=== PATIENT | male | born 1995 | race Two or more races ===

== ENCOUNTER 2024-04-04 14:23 | Emergency (ER) | payer OTHER, SELFPAY ==
--- NOTE | ~2024-04-04 | XR_ITS ---
EXAMINATION: XR SHOULDER, RIGHT CLINICAL INFORMATION: ? dislocation COMPARISON: None available. TECHNIQUE: AP external rotation, Grashey, scapular Y, and axillary views of the right shoulder. FINDINGS: The bones and soft tissues are normal. No fracture. Glenohumeral and acromioclavicular alignment is anatomic with normal joint space. No abnormal soft tissue calcifications. XR/XR shoulder RT min 2V IMPRESSION: Normal right shoulder. Electronically signed by: Magno Bloom MD 04/04/2024 03:19 PM [place]
[2024-04-04 14:53] VITALS: BP 124/80; PULSE 77; RESP 16; TEMP 36.7; O2SAT 99; BMI 31.7
--- NOTE | 2024-04-04 14:53 | ED_ITS ---
HPI - General Adult General Chief complaint: Extremity Injury, Upper Stated complaint: dislocated r shoulder at work Time Seen by Provider: 04/04/24 15:35 Source: patient, RN notes reviewed and old records reviewed Mode of arrival: ambulatory Limitations: no limitations History of Present Illness ED Provider: Vignesh [facility] narrative: Patient is a 28-year-old right hand dominant male presenting to ED from urgent care for concern of right shoulder dislocation, arrives in sling. Had x-ray there, presents with a disc, paperwork states concern for subluxation. Fell out of a truck at work a few hours ago, put his right arm out to break his fall. Denies head strike or loss of consciousness, is not anticoagulated. MD complaint: right shoulder pain Onset (ago): hour(s) Treatments prior to arrival: other (sling ) Related Data Allergies Allergy/AdvReac Type Severity Reaction Status Date / Time ibuprofen Allergy Unknown chest wall Verified 04/04/24 14:56 pain Review of Systems Review of Systems: As per HPI Yes all other systems are reviewed and are negative Constitutional: Constitutional: Reports as per HPI [facility] Social History Social History Do you have a plan to hurt others: No Plan Physical Exam ED Vital Signs: Vital Signs - 24 hr 04/04/24 14:53 Temperature 98.0 F Pulse Rate 77 Respiratory Rate 16 Blood Pressure 124/80 Pulse Oximetry 99 Oxygen Delivery Method Room Air BMI result Body Mass Index 31.7 Vital signs have been reviewed and appear to be correct. Blood pressure normal. Heart rate normal. Respiratory rate normal. Temperature normal. Oxygen saturation normal. Const General: cooperative, healthy appearing and no acute distress Orientation/consciousness: oriented to person, oriented to place, oriented to time and patient oriented x3 Limitations: no limitations HENMT Head: Yes normocephalic and Yes atraumatic Ears: external ears normal General nose exam: Normal external nose present Face and sinus: Yes face symmetric Mouth: oropharynx normal and moist mucous membranes Throat: Yes uvula midline Eyes Pupils: Equal, round and reactive pupils present Neck Neck: Yes normal visual inspection and Yes supple Resp Effort & Inspection: normal respiratory effort and able to speak in complete sentences Auscultation: clear to auscultation bilaterally Cardio Rate: regular rate Rhythm: regular rhythm Heart sounds: S1 normal heart sound present and S2 normal heart sound present GI Palpation (GI): Soft to palpation and nontender Auscultation: normoactive bowel sounds General: Yes no CVA tenderness Back/Spine/Pelvis Back: no CVA tenderness Skin General skin exam: elasticity normal and turgor normal Neuro General: oriented to person, oriented to place, oriented to time, patient oriented x3, moves all extremities, no focal motor deficits and CN's II-XI intact bilaterally Cranial nerves: Yes Equal, round and reactive pupils present Cognition (Neuro): normal cognition Extrem General: Yes full ROM, Yes no pedal edema and Yes no calf tenderness Right upper extremity: shoulder/upper arm Details: normal to inspection, tenderness Location: of the A-C joint and axillary nerve sensory function normal; no swelling, ROM limited (decreased ROM all directions r/t pain), no ecchymosis and no deformity and Extremity exam: right hand Details: vascular exam Details: radial pulse present and normal capillary refill and normal ROM of fingers Psych Mental Status: mental status grossly normal Affect: normal affect Thought process: Normal thought process present Course Course Course Narrative: This is a rapid medical exam performed by Manjula Medellin NP: Additional HPI, ROS, PE not included below will be deferred to primary provider. Patient is a 28-year-old right hand dominant male presenting to ED from urgent care for ? right shoulder dislocation, arrives in sling. Had x-ray there, presents with a disc. Fell out of a truck at work a few hours ago, put right arm out to break his fall. Denies head strike, LOC, is not anticoagulated. Plan: repeat imaging Medical Decision Making Medical Decision Making MDM Narrative: Patient is a 28-year-old right hand dominant male presenting to ED from urgent care for concern of right shoulder dislocation, arrives in sling. On exam patient is awake, A+Ox3, VS WNL, afebrile, normal neurological exam without focal deficits, physical exam findings as above. Given reported symptoms and physical exam findings, initial differential includes but is not limited to right shoulder strain, sprain, fracture, dislocation. X-ray notable for normal right shoulder. My interpretation is in agreement with the radiologist's interpretation. Results discussed with patient and all questions answered. Will refer to orthopedics for follow-up. Discussed with patient that he should not wear the sling longer than the next 1-2 days as this can cause his shoulder to become a frozen. Return precautions discussed. Patient verbalized understanding of and agreement with plan. Differential Diagnosis Differential Diagnoses: The differential diagnosis associated with the presentation includes As per MDM Independent Interpretation I performed an independent interpretation of an: Plain X-Ray Interpretation: Normal right shoulder on x-ray Radiology Impression Discussion of test interpretation with radiology: I have reviewed the radiologist's reading. Radiologist Impression: FINDINGS: The bones and soft tissues are normal. No fracture. Glenohumeral and acromioclavicular alignment is anatomic with normal joint space. No abnormal soft tissue calcifications. XR/XR shoulder RT min 2V IMPRESSION: Normal right shoulder. External Record Review External record reviewed: Inpatient record, Office record and Outpatient record Discharge Plan Discharge Clinical Impression: Right shoulder strain Patient Disposition: Home, Self-Care Instructions: Muscle Strain (DC) Additional Instructions: You were evaluated in the emergency department today for right shoulder pain after a fall. Your x-ray was normal and does not show a dislocation or fracture. You can wear the sling provided to you by urgent care for the next 1- 2 days, but you should not wear it for longer than that. We recommend that you take 650 mg Tylenol every 6 hours as needed for pain. You can apply ice to the affected area for 10-15 minutes at a time several times daily, using caution not to apply ice directly to skin. Follow-up with the orthopedic office for ongoing symptoms. Return to the emergency department with worsening pain, numbness, weakness, tingling, change of color in your arm or any other concerning symptoms. If you need clearance to return to work you can follow up with [facility]. [facility] [address] [place] [address] Referrals: [facility] [Provider Group] Print Language: Japanese
== END 2024-04-04 16:02 | disposition home or self-care (01) ==
LOC: HO.ED 15:55
PROVIDERS: Emergency Provider Emergency Medicine; PCP Internal Medicine
DX: S46.911A Strain of unspecified muscle, fascia and tendon at shoulder and upper arm level, right arm, initial encounter (principal); W17.89XA Other fall from one level to another, initial encounter; Y93.89 Activity, other specified; Y92.812 Truck as the place of occurrence of the external cause; Y99.0 Civilian activity done for income or pay
CPT/HCPCS: 73030; 99281; 99283

== ENCOUNTER → 2024-04-04 14:54 | Outpatient (BNV) | payer OTHER, SELFPAY | PROVIDERS: Emergency Provider Emergency Medicine; PCP Internal Medicine; Visit Provider Radiology Diagnostic Radiology | DX: M25.511 Pain in right shoulder (principal) | CPT/HCPCS: 73030 ==

== ENCOUNTER → 2024-04-21 13:28 | Outpatient (BNVA) | payer OTHER, SELFPAY | PROVIDERS: PCP Internal Medicine; Visit Provider Physician Assistant | DX: M75.101 Unspecified rotator cuff tear or rupture of right shoulder, not specified as traumatic (principal); S43.001A Unspecified subluxation of right shoulder joint, initial encounter | CPT/HCPCS: 99202 ==